=== PATIENT | female | born 1990 ===

== ENCOUNTER 2021-10-15 18:51 | Emergency (ER) | payer MEDICAID ==
[~2021-10-15] VITALS: Ht 170.2 cm; Wt 135.0 kg
--- NOTE | 2021-10-15 19:00 | NUR ---
ASSUMED CARE OF PT. AWAKE AND ALERT. ROOM SAFEY COMLETED. COOPERATIVE AT THIS TIME.
[2021-10-15 19:22] LABS: BASOPHILS % (AUTO) 0.5 % (0-1); EOSINOPHILS % (AUTO) 0.2 % (0-6); HEMOGLOBIN 12.3 g/dl (12.0-16.0); LYMPHOCYTES # (AUTO) 1.2 X10'3 (1.1-4.8); LYMPHOCYTES % (AUTO) 14.1 % (21-51); MEAN CORPUSCULAR HEMOGLOBIN 31.8 PG (27.0-31.0); MEAN CORPUSCULAR HGB CONC 34.1 g/dL (33.0-36.5); MEAN CORPUSCULAR VOLUME 93.2 FL (78-98); MEAN PLATELET VOLUME 8.3 FL (7.4-10.4); MONOCYTES # (AUTO) 0.6 X10'3 (0-0.9); MONOCYTES % (AUTO) 6.5 % (2-12); NEUTROPHILS # (AUTO) 6.8 X10'3 (1.8-7.7); NEUTROPHILS % (AUTO) 78.7 % (42-75); PLATELET COUNT 264 X10'3 (140-440); RED BLOOD COUNT 3.86 X10'6 (4.20-5.60); RED CELL DISTRIBUTION WIDTH 13.9 % (11.5-14.5); WHITE BLOOD COUNT 8.7 X10'3 (4.5-11.0)
[2021-10-15] MEDS ORDERED: LIDOcaine 1% W/epiNEPHrine 1:100,000 20ml vial SQ ONE (19:25)
[2021-10-15 19:33] LABS: URINE HCG NEGATIVE (NEG)
[2021-10-15 19:36] LABS: CLARITY,URINE CLEAR (Clear); COLOR,URINE YELLOW (Yellow); GLUCOSE, URINE NEGATIVE (Neg); KETONES,URINE NEGATIVE (Neg); LEUKOCYTE ESTERASE ,URINE NEGATIVE (Neg); NITRITES, URINE NEGATIVE (Neg); OCCULT BLOOD,URINE SMALL (Neg); PH,URINE 5.5 (4.8-8.0); PROTEIN,URINE NEGATIVE (Neg); UROBILINOGEN,URINE 0.2 E.U/dL (0.2-1.0)
[2021-10-15 19:40] LABS: ALANINE AMINOTRANSFERASE 30 U/L (12-78); ALBUMIN 4.1 G/DL (3.4-5.0); ALBUMIN/GLOBULIN RATIO 1.6 (1.1-1.5); ALKALINE PHOSPHATASE 40 IU/L (46-116); ANION GAP 12 (8-16); ASPARTATE AMINO TRANSFERASE 26 U/L (10-37); BILIRUBIN,TOTAL 0.5 MG/DL (0.1-1.0); BLOOD UREA NITROGEN 8 MG/DL (7-18); BUN/CREATININE RATIO 9.4 (6.6-38.0); CALCIUM 8.4 MG/DL (8.5-10.1); CHLORIDE 98 MMOL/L (99-107); CREATININE 0.85 MG/DL (0.40-0.90); GLUCOSE 130 MG/DL (70-104); SODIUM 132 MMOL/L (135-145); TOTAL CARBON DIOXIDE 21.8 MMOL/L (24-32); TOTAL PROTEIN 6.7 G/DL (6.4-8.2); eGFR 77 ML/MIN
[2021-10-15 19:43] LABS: UA COLLECTION TYPE NON-SPECIFIED
[2021-10-15 19:44] LABS: BACTERIA,URINE NONE SEEN /HPF (Neg); RBC,URINE 0-2 /HPF (0-2); SQUAMOUS EPITHELIAL CELL,UR FEW /LPF (FEW); WBC,URINE NONE SEEN /HPF (0-4)
[2021-10-15] MEDS ORDERED: LIDOCAINE 2% (20mg/ml) w/EPINEPHRINE 1:200,000-PF 10 ML inj. SQ ONE (19:50)
[2021-10-15] MEDS ORDERED: potassium Cl 20 mEq SR tablet PO STA (19:50)
[2021-10-15 19:51] LABS: ETHANOL < 0.010 GM/DL (0.0-0.010)
[2021-10-15 19:51] LABS: URINE AMPHETAMINE SCREEN NEGATIVE (Neg); URINE BARBITUATE SCREEN NEGATIVE (Neg); URINE BENZODIAZEPINES SCREEN NEGATIVE (Neg); URINE CANNABINOID SCREEN NEGATIVE (Neg); URINE COCAINE SCREEN NEGATIVE (Neg); URINE METHADONE SCREEN NEGATIVE (Neg); URINE OPIATE SCREEN NEGATIVE (Neg); URINE PHENCYCLIDINE SCREEN NEGATIVE (Neg)
[2021-10-15] MEDS ORDERED: LIDOCAINE 2% w/EPI 1:100:000 30mL injection MDV**cath lab 1 only SQ ONE ×3 (20:00→20:15)
[2021-10-15] MEDS: cephalexin 250mg capsule PO SCH ×2 (20:26→20:29)
--- NOTE | 2021-10-15 21:37 | NUR ---
PT USED JOSE ANTONIO TO CANCEL ARRAGED FLIGH FOR TOMORROW AM.
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
[2021-10-15] MEDS ORDERED: LORazepam 1 MG tablet PO ONE (21:55)
--- NOTE | 2021-10-15 22:00 | NUR ---
PT STATED THAT SHE DOS NOT FEEL SAFE IN ED WITHOUT HER CELLPHONE. EXPLAIN TO PT ED POLICIES FOR PATIENTS WHO ARE ON A HOLD THAT FOR PT AND STAFF SAFETY CELLPHONES ARE NOT ALLOWED TO KEPT BY PT AND WILL BE PUT AWAY IN THE SAFE LOCKERS.
--- NOTE | 2021-10-15 22:18 | NUR ---
PT REFUSING COVID SWAB. NOTIFIED .
--- NOTE | 2021-10-15 23:00 | NUR ---
PT WITH EYES CLOSE NON LABORED BREATHING. NO S/S OF PAIN OR DISCOMFORT. WILL MONITOR.
--- NOTE | 2021-10-16 01:00 | NUR ---
PT WITH EYES CLOSE NON LABORED BREATHING. NO S/S OF PAIN OR DISCOMFORT. WILL MONITOR.
[2021-10-16] MEDS ORDERED: acetaminophen 325mg tablet PO ONE (02:20)
--- NOTE | 2021-10-16 03:00 | NUR ---
PT AWAKE AND ALERT. C/O LEFT WRIST PAIN. MD NOTIFIED. N/O FOR TYL PO. MED GIVEN WILL MONITOR.
[2021-10-16] MEDS ORDERED: NO HOME MEDS (03:08)
--- NOTE | 2021-10-16 05:00 | NUR ---
PT WITH EYES CLOSE NON LABORED BREATHING. NO S/S OF PAIN OR DISCOMFORT.
--- NOTE | 2021-10-16 06:30 | NUR ---
Recieved report from [facility].
--- NOTE | 2021-10-16 06:55 | NUR ---
Pt sleeping but easily awaken for vitals to be taken, pt also swabbed for COVID.
--- NOTE | 2021-10-16 09:45 | NUR ---
No change in pt's condition, continues to be on mental health watch.
[2021-10-16 11:12] VITALS: BP 109/70
--- NOTE | 2021-10-16 11:38 | NUR ---
Pt moved from ER rm 10 to overflow rm 23. Pt is talking on the phone with her father. She denies any complaints at this time.
--- NOTE | 2021-10-16 12:10 | NUR ---
Pt sitting up in bed, eating lunch.
--- NOTE | 2021-10-16 14:21 | NUR ---
Pt laying supine in bed. She is currently talking on the phone to her family. She denies any complaints or requests at this time. Pt in no acute distress.
--- NOTE | 2021-10-16 15:12 | NUR ---
Alex, [facility] worker at bedside.
[2021-10-16] MEDS ORDERED: CEPH-585 PO (15:47)
== END 2021-10-16 16:46 | disposition home or self-care (01) ==
LOC: ER 18:52
DX: S61.512A Laceration without foreign body of left wrist, initial encounter (principal); Z20.822 Contact with and (suspected) exposure to COVID-19; Z79.2 Long term (current) use of antibiotics; Z79.899 Other long term (current) drug therapy; X78.9XXA Intentional self-harm by unspecified sharp object, initial encounter; Y93.89 Activity, other specified; Y92.89 Other specified places as the place of occurrence of the external cause; Y99.8 Other external cause status
CPT/HCPCS: 12002; 36415; 80053; 80305; 80320; 81001; 81025; 84443; 85025; 87811; 96372; 99285; J3490; J7030